=== PATIENT | female | born 1965 | race Caucasian/White ===

== ENCOUNTER 2017-06-25 14:26 | Emergency (ER) | payer OTHER ==
[~2017-06-25] VITALS: Ht 162.6 cm; Wt 72.6 kg
[~2017-06-25 14:26] MED LIST: AMIT50TA3 PO; BACL20TA PO; BRINTELLIX; FENT25DI2 TD; GABA-497 PO; LISD60CA PO; OXYC325T10 PO; TRIA0.25 PO
[2017-06-25] MEDS ORDERED: SODIUM CHLORIDE 0.9% 1,000 ML IVB ONE (14:30)
[2017-06-25 14:49] LABS: Eosinophils # (auto) 0.1 uL; White Blood Cell 9.2 10^3/uL (4.4-10.8)
[2017-06-25 14:55] LABS: Basophils # (auto) 0 uL; Basophils % (auto) 0.4 % (0.0-2.0); Eosinophils % (auto) 1.5 % (0.0-7.0); Hematocrit 28.7 % (36.0-46.0); Hemoglobin 9.4 g/dL (12.2-16.2); Lymphocytes % (auto) 22.1 % (10.0-50.0); Mean Corpuscular Hemoglobin 24.9 pg (28.0-32.0); Mean Corpuscular Hgb Conc. 32.8 g/dL (32.0-36.0); Mean Corpuscular Volume 75.8 fL (80.0-100.0); Mean Platelet Volume 8.4 fL (6.9-10.8); Monocytes # (auto) 0.8 uL; Monocytes % (auto) 8.7 % (0.0-12.0); Neutrophils # (auto) 6.2 uL; Neutrophils % (auto) 67.3 % (37.0-80.0); Platelet Count (auto) 280 10^3/uL (140-450); Red Cell Distribution Width 18.8 % (11.8-14.3)
[2017-06-25 15:10] LABS: Albumin 3.3 g/dL (3.4-5.0); Alkaline Phosphatase 83 U/L (45-117); Anion Gap 6 (5-15); Aspartate Aminotransferase 32 U/L (15-37); BUN/Creatinine Ratio 37.5; Bilirubin, Total 0.4 mg/dL (0.2-1.0); Blood Urea Nitrogen 18 mg/dL (7-18); Calcium 8.2 mg/dL (8.5-10.1); Carbon Dioxide 26 mmol/L (21-32); Chloride 108 mmol/L (98-107); GFR African American 173 mL/min; GFR Non-African American 143 mL/min; Glucose 93 mg/dL (74-106); Potassium 3.8 mmol/L (3.5-5.1); Sodium 140 mmol/L (136-145)
[2017-06-25] MEDS ORDERED: ACETAMINOPHEN 325 MG TAB PO ONE ×2 (16:50→17:00)
[2017-06-25 17:03] VITALS: BP 132/83
[2017-06-25 17:45] LABS: Anisocytosis Slight; Platelet Estimate Adequate
[2017-06-25 17:46] LABS: Microcytosis Slight
== END 2017-06-25 17:07 | disposition home or self-care (01) ==
LOC: EDBD 14:26 → ER 14:28
DX: F41.9 Anxiety disorder, unspecified (principal); F32.9 Major depressive disorder, single episode, unspecified; Z88.0 Allergy status to penicillin; Z88.8 Allergy status to other drugs, medicaments and biological substances; Z90.49 Acquired absence of other specified parts of digestive tract
CPT/HCPCS: 36415; 80053; 80307; 80320; 85025; 93005; 94761; 99285; J7030

== ENCOUNTER 2017-08-29 17:06 | Inpatient (IN) | payer OTHER ==
[~2017-08-29] VITALS: Ht 165.1 cm; Wt 69.6 kg
[~2017-08-29 17:06] MED LIST changes: -GABA-497 PO; +GABA300C10 PO
[2017-08-29] MEDS ORDERED: SODIUM CHLORIDE 0.9% 1,000 ML IVB ONE (17:20)
[2017-08-29 18:02] LABS: Basophils # (auto) 0.1 uL; Eosinophils # (auto) 0.2 uL; Eosinophils % (auto) 2.1 % (0.0-7.0); Hemoglobin 10.6 g/dL (12.2-16.2); Monocytes # (auto) 0.6 uL; Platelet Count (auto) 393 10^3/uL (140-450)
[2017-08-29 18:04] LABS: Basophils % (auto) 0.6 % (0.0-2.0); Hematocrit 33.7 % (36.0-46.0); Lymphocytes # (auto) 1.6 uL; Lymphocytes % (auto) 17.7 % (10.0-50.0); Mean Corpuscular Hgb Conc. 31.5 g/dL (32.0-36.0); Mean Corpuscular Volume 79.3 fL (80.0-100.0); Monocytes % (auto) 6.6 % (0.0-12.0); Neutrophils # (auto) 6.8 uL; Red Blood Cells 4.25 10^6/uL (4.0-5.20); Red Cell Distribution Width 18.2 % (11.8-14.3); White Blood Cell 9.3 10^3/uL (4.4-10.8)
[2017-08-29 18:14] LABS: INR 1.05 (0.9-1.15); Prothrombin Time 11.5 sec (9.37-12.3)
[2017-08-29 18:18] LABS: Alanine Aminotransferase 27 U/L (13-56); Albumin 3.9 g/dL (3.4-5.0); Anion Gap 11 (5-15); Aspartate Aminotransferase 24 U/L (15-37); BUN/Creatinine Ratio 37.2; Blood Alcohol < 3.0 mg/dL (0-5); Blood Urea Nitrogen 29 mg/dL (7-18); Calcium 8.8 mg/dL (8.5-10.1); Carbon Dioxide 23 mmol/L (21-32); Chloride 103 mmol/L (98-107); GFR African American 99 mL/min; GFR Non-African American 82 mL/min; Glucose 116 mg/dL (74-106); Magnesium 2.1 mg/dL (1.6-2.6); Sodium 137 mmol/L (136-145)
[2017-08-29 18:23] LABS: Alkaline Phosphatase 98 U/L (45-117); Bilirubin, Total 0.8 mg/dL (0.2-1.0)
[2017-08-29 18:35] LABS: Urine Bacteria MANY /hpf (None Seen); Urine Blood Negative /uL (Negative); Urine Specific Gravity 1.035 (1.001-1.035); Urine WBC 4 /hpf (0 - 5)
[2017-08-29 18:46] LABS: Alcohol, Urine < 3.0 mg/dL (0-5); Amphetamine Screen, Urine POSITIVE (NEGATIVE); Barbiturate Scree,Urine POSITIVE (NEGATIVE); Benzodiazephine Screen, Urine NEGATIVE (NEGATIVE); Cannabinoid Screen, Urine NEGATIVE (NEGATIVE); Cocaine Screen, Urine NEGATIVE (NEGATIVE); Opiate Scree,Urine NEGATIVE (NEGATIVE); Phencyclidine Screen, Urine NEGATIVE (NEGATIVE)
[2017-08-29] MEDS ORDERED: MORPHINE SULFATE 4 MG/ML SYR/VIAL IV PRN ×2 (19:00)
[2017-08-29] MEDS ORDERED: cefTRIAXone 1GM/10ml IVPUSH 10 ML IV ONE (19:00)
[2017-08-29] MEDS ORDERED: LEVOFLOXACIN 500MG 100 ML IV ONE (19:00)
[2017-08-29] MEDS ORDERED: NITROGLYCERIN 0.4 MG SL TAB SL PRN (19:00)
[2017-08-29] MEDS ORDERED: ACETAMINOPHEN 500 MG TAB PO PRN (19:00)
[2017-08-29] MEDS ORDERED: PROMETHAZINE HCL 25 MG/ML 1ML IV PRN (19:00)
[2017-08-29] MEDS ORDERED: LORazepam 0.5 MG TAB PO PRN (19:00)
[2017-08-29] MEDS ORDERED: LACTULOSE 20Gm/30ML SOLN PO PRN (19:00)
[2017-08-29] MEDS: SODIUM CHLORIDE 0.9% 1,000 ML IV SCH (19:20)
[2017-08-29 19:37] LABS: Folate (Folic Acid) 17.17 ng/mL (5.38-24)
[2017-08-29] MEDS ORDERED: hydrOXYzine 25 MG TAB or CAP PO PRN (20:15)
[2017-08-29] MEDS ORDERED: ALPRAZolam 0.25 MG TAB PO PRN (20:15)
[2017-08-29 21:00] VITALS: BP 138/68
[2017-08-29] MEDS: ROPINIROLE 1 MG PO SCH (22:00)
[2017-08-29] MEDS ORDERED: GABAPENTIN 300 MG CAP PO PRN (22:00)
[2017-08-29] MEDS: QUEtiapine FUMARATE 100 MG TAB PO SCH (23:03)
[2017-08-29] MEDS: PREGABALIN CAPSULE 75 MG CAP PO SCH (23:03)
[2017-08-29] MEDS: PREGABALIN 25 MG CAP PO SCH (23:03)
[2017-08-29] MEDS: DULoxetine HCL 30 MG CAP PO SCH (23:04)
[2017-08-29] MEDS ORDERED: LORazepam 2MG/ML-1ML VIAL IV PRN (23:15)
[2017-08-29 23:45] VITALS: BP_SYST 135
[2017-08-30] MEDS: TEMAZEPAM 15 MG CAP PO PRN ×2 (01:24→22:35)
[2017-08-30] MEDS ORDERED: CLO01T PO (03:37)
[2017-08-30] MEDS ORDERED: ALPR0.5T PO (03:37)
[2017-08-30] MEDS ORDERED: PREG100C PO (03:42)
[2017-08-30] MEDS ORDERED: OMEP20CA74 PO (03:42)
[2017-08-30] MEDS ORDERED: MELO1TAB73 PO (03:42)
[2017-08-30] MEDS ORDERED: DULO60CA PO (03:42)
[2017-08-30] MEDS ORDERED: VARE1TAB PO (03:42)
[2017-08-30] MEDS ORDERED: HYDR50TA69 PO (03:42)
[2017-08-30] MEDS ORDERED: QUET150T2 PO (03:42)
[2017-08-30] MEDS ORDERED: ROPI1TAB22 PO (03:42)
[2017-08-30 05:37] VITALS: BP 116/60
[2017-08-30] MEDS: PREGABALIN CAPSULE 75 MG CAP PO SCH ×3 (05:56→22:34)
[2017-08-30] MEDS: PREGABALIN 25 MG CAP PO SCH ×3 (05:56→22:34)
[2017-08-30] MEDS: OXYCODONE W/ ACETAMINOPHEN 5/325MG TABLET PO PRN ×3 (05:57→22:35)
[2017-08-30 06:53] LABS: Eosinophils # (auto) 0.2 uL; Hemoglobin 10.5 g/dL (12.2-16.2); Mean Corpuscular Volume 77.8 fL (80.0-100.0); Monocytes # (auto) 0.8 uL; Monocytes % (auto) 9.8 % (0.0-12.0); Neutrophils # (auto) 3.5 uL; Platelet Count (auto) 366 10^3/uL (140-450)
[2017-08-30 06:56] LABS: Basophils # (auto) 0 uL; Basophils % (auto) 0.5 % (0.0-2.0); Eosinophils % (auto) 2.7 % (0.0-7.0); Hematocrit 32.6 % (36.0-46.0); Lymphocytes # (auto) 3.7 uL; Lymphocytes % (auto) 44.8 % (10.0-50.0); Mean Corpuscular Hemoglobin 25.2 pg (28.0-32.0); Mean Corpuscular Hgb Conc. 32.3 g/dL (32.0-36.0); Neutrophils % (auto) 42.2 % (37.0-80.0); Red Blood Cells 4.19 10^6/uL (4.0-5.20); Red Cell Distribution Width 18.6 % (11.8-14.3); White Blood Cell 8.3 10^3/uL (4.4-10.8)
[2017-08-30 07:04] LABS: Albumin 3.5 g/dL (3.4-5.0); BUN/Creatinine Ratio 28.6; Bilirubin, Total 0.3 mg/dL (0.2-1.0); Calcium 8.5 mg/dL (8.5-10.1); Total Protein 7.4 g/dL (6.4-8.2)
[2017-08-30] MEDS: SODIUM CHLORIDE 0.9% 1,000 ML IV SCH ×2 (07:24→19:54)
[2017-08-30 09:08] VITALS: BP 136/82
[2017-08-30] MEDS: DULoxetine HCL 30 MG CAP PO SCH ×2 (09:37→22:35)
[2017-08-30] MEDS: PANTOPRAZOLE 40 MG TAB PO SCH (09:37)
[2017-08-30] MEDS: cefTRIAXone 1GM/10ml IVPUSH 10 ML IV SCH (09:37)
[2017-08-30] MEDS: ASPirin 81 mg TAB PO SCH ×2 (09:38→10:00)
[2017-08-30] MEDS: ENOXAPARIN SOD 40 MG/0.4 ML SYRINGE SC SCH ×2 (09:38→10:00)
[2017-08-30] MEDS: ROPINIROLE 1 MG PO SCH ×2 (10:00→22:00)
[2017-08-30 13:00] VITALS: BP 130/89
[2017-08-30] MEDS ORDERED: HYDR50CA PO (16:03)
[2017-08-30] MEDS ORDERED: SUCR1SUS10 PO (16:05)
[2017-08-30 17:00] VITALS: BP 122/82
[2017-08-30 22:00] VITALS: BP 141/77
[2017-08-30] MEDS: QUEtiapine FUMARATE 100 MG TAB PO SCH (22:34)
[2017-08-31 05:00] VITALS: BP 136/78
[2017-08-31] MEDS: PREGABALIN 25 MG CAP PO SCH (06:45)
[2017-08-31] MEDS: PREGABALIN CAPSULE 75 MG CAP PO SCH (06:45)
[2017-08-31] MEDS: OXYCODONE W/ ACETAMINOPHEN 5/325MG TABLET PO PRN (06:50)
[2017-08-31] MEDS: SODIUM CHLORIDE 0.9% 1,000 ML IV SCH (08:53)
[2017-08-31 09:00] VITALS: BP 156/76
[2017-08-31] MEDS: ASPirin 81 mg TAB PO SCH (10:00)
[2017-08-31] MEDS: ROPINIROLE 1 MG PO SCH (10:00)
[2017-08-31] MEDS: cefTRIAXone 1GM/10ml IVPUSH 10 ML IV SCH (10:38)
[2017-08-31] MEDS: DULoxetine HCL 30 MG CAP PO SCH (10:39)
[2017-08-31] MEDS: PANTOPRAZOLE 40 MG TAB PO SCH (10:40)
[2017-08-31] MEDS: ENOXAPARIN SOD 40 MG/0.4 ML SYRINGE SC SCH (10:40)
[2017-08-31 11:30] VITALS: BP 140/70
== END 2017-08-31 13:12 | disposition home or self-care (01) | DRG 689 ==
LOC: EDBD 17:06 → ER 17:17 → TELE 17:18 → TELE-CENTR 20:31
PROVIDERS: ADMIT Internal Medicine; ATTEND Family Medicine
DX: N39.0 Urinary tract infection, site not specified (principal); G92 Toxic encephalopathy; G89.4 Chronic pain syndrome; B96.1 Klebsiella pneumoniae [K. pneumoniae] as the cause of diseases classified elsewhere; D64.9 Anemia, unspecified; E86.0 Dehydration; F15.90 Other stimulant use, unspecified, uncomplicated; F17.210 Nicotine dependence, cigarettes, uncomplicated; F31.9 Bipolar disorder, unspecified; F41.9 Anxiety disorder, unspecified; M53.82 Other specified dorsopathies, cervical region; M79.7 Fibromyalgia; R29.6 Repeated falls; Z79.899 Other long term (current) drug therapy; Z82.5 Family history of asthma and other chronic lower respiratory diseases; Z83.3 Family history of diabetes mellitus; Z98.84 Bariatric surgery status; E66.9 Obesity, unspecified; M54.5 Low back pain; Z88.0 Allergy status to penicillin; Z88.6 Allergy status to analgesic agent
CPT/HCPCS: 36415; 70450; 70551; 72125; 80053; 80061; 80307; 80320; 81001; 82550; 82607; 82746; 83735; 84443; 84484; 85025; 85610; 85652; 85730; 87086; 87088; 87186; 93306; 93886; 94761; 95819; 96361; 96365; 96375; J1956